=== PATIENT | male | born 1990 | race Asian ===

== ENCOUNTER 2017-10-21 20:24 | Emergency (ER) | payer SELFPAY ==
[2017-10-21 20:34] VITALS: BP 129/83
[2017-10-21] MEDS ORDERED: Ibuprofen TAB* 600 MG PO ONE (20:48)
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
== END 2017-10-21 21:53 | disposition home or self-care (01) ==
LOC: ED 20:24
DX: M25.571 Pain in right ankle and joints of right foot (principal); S93.409A Sprain of unspecified ligament of unspecified ankle, initial encounter; M25.559 Pain in unspecified hip; M25.572 Pain in left ankle and joints of left foot; S90.511A Abrasion, right ankle, initial encounter; V89.2XXA Person injured in unspecified motor-vehicle accident, traffic, initial encounter; Y93.9 Activity, unspecified; Y92.9 Unspecified place or not applicable; V03.90XA Pedestrian on foot injured in collision with car, pick-up truck or van, unspecified whether traffic or nontraffic accident, initial encounter
CPT/HCPCS: 99282; A9270-GY